=== PATIENT | male | born 1960 | race Caucasian/White ===

== ENCOUNTER 2022-10-29 08:41 | Outpatient (CLI) | payer BC | END 2022-10-29 08:42 | disposition home or self-care (01) | LOC: CSHWCC 08:41 | PROVIDERS: ATTEND Nurse Practitioner Family | DX: I87.311 Chronic venous hypertension (idiopathic) with ulcer of right lower extremity (principal); L97.312 Non-pressure chronic ulcer of right ankle with fat layer exposed; L97.322 Non-pressure chronic ulcer of left ankle with fat layer exposed; R60.0 Localized edema | CPT/HCPCS: 29581; 99213; G0463 ==

== ENCOUNTER 2022-11-13 09:37 | Outpatient (CLI) | payer BC | END 2022-11-13 09:38 | disposition home or self-care (01) | LOC: CSHWCC 09:37 | PROVIDERS: ATTEND Nurse Practitioner Family | DX: I87.313 Chronic venous hypertension (idiopathic) with ulcer of bilateral lower extremity (principal); L97.312 Non-pressure chronic ulcer of right ankle with fat layer exposed; L97.322 Non-pressure chronic ulcer of left ankle with fat layer exposed; R60.0 Localized edema | CPT/HCPCS: 29581 ==

== ENCOUNTER 2022-11-18 09:20 | Outpatient (CLI) | payer BC | END 2022-11-18 09:21 | disposition home or self-care (01) | LOC: CSHWCC 09:20 | PROVIDERS: ATTEND Nurse Practitioner Family | DX: I87.313 Chronic venous hypertension (idiopathic) with ulcer of bilateral lower extremity (principal); L97.312 Non-pressure chronic ulcer of right ankle with fat layer exposed; L97.322 Non-pressure chronic ulcer of left ankle with fat layer exposed; R60.0 Localized edema | CPT/HCPCS: 29581 ==

== ENCOUNTER 2022-11-23 14:29 | Outpatient (CLI) | payer BC | END 2022-11-23 14:30 | disposition home or self-care (01) | LOC: CSHWCC 14:29 | PROVIDERS: ATTEND Nurse Practitioner Family | DX: R60.0 Localized edema (principal) ==

== ENCOUNTER 2022-11-30 15:05 | Outpatient (CLI) | payer BC | END 2022-11-30 15:06 | disposition home or self-care (01) | LOC: CSHWCC 15:05 | PROVIDERS: ATTEND Nurse Practitioner Family | DX: I87.311 Chronic venous hypertension (idiopathic) with ulcer of right lower extremity (principal); L97.312 Non-pressure chronic ulcer of right ankle with fat layer exposed; R60.0 Localized edema | CPT/HCPCS: 29581 ==

== ENCOUNTER 2022-12-07 09:31 | Outpatient (CLI) | payer BC | END 2022-12-07 09:32 | disposition home or self-care (01) | LOC: CSHWCC 09:31 | PROVIDERS: ATTEND Nurse Practitioner Family | DX: R60.0 Localized edema (principal); I87.311 Chronic venous hypertension (idiopathic) with ulcer of right lower extremity; L97.312 Non-pressure chronic ulcer of right ankle with fat layer exposed ==

== ENCOUNTER 2022-12-14 10:33 | Outpatient (CLI) | payer BC | END 2022-12-14 10:34 | disposition home or self-care (01) | LOC: CSHWCC 10:33 | PROVIDERS: ATTEND Nurse Practitioner Family | DX: R60.0 Localized edema (principal) ==

== ENCOUNTER 2023-12-24 10:56 | Outpatient (CLI) | payer BC | END 2023-12-24 10:57 | disposition home or self-care (01) | LOC: CSHWCC 10:56 | PROVIDERS: ATTEND Nurse Practitioner Family | DX: I87.313 Chronic venous hypertension (idiopathic) with ulcer of bilateral lower extremity (principal); I87.2 Venous insufficiency (chronic) (peripheral); E11.622 Type 2 diabetes mellitus with other skin ulcer; L97.312 Non-pressure chronic ulcer of right ankle with fat layer exposed; L97.522 Non-pressure chronic ulcer of other part of left foot with fat layer exposed; I89.0 Lymphedema, not elsewhere classified | CPT/HCPCS: 29581 ==

== ENCOUNTER 2024-01-04 13:22 | Outpatient (CLI) | payer BC | END 2024-01-04 13:23 | disposition home or self-care (01) | LOC: CSHWCC 13:22 | PROVIDERS: ATTEND Nurse Practitioner Family | DX: I87.313 Chronic venous hypertension (idiopathic) with ulcer of bilateral lower extremity (principal); E11.622 Type 2 diabetes mellitus with other skin ulcer; E11.621 Type 2 diabetes mellitus with foot ulcer; L97.312 Non-pressure chronic ulcer of right ankle with fat layer exposed; L97.522 Non-pressure chronic ulcer of other part of left foot with fat layer exposed; I87.2 Venous insufficiency (chronic) (peripheral); I89.0 Lymphedema, not elsewhere classified | CPT/HCPCS: 11042 ==

== ENCOUNTER 2024-01-07 11:20 | Outpatient (CLI) | payer BC | END 2024-01-07 11:21 | disposition home or self-care (01) | LOC: CSHWCC 11:20 | PROVIDERS: ATTEND Nurse Practitioner Family | DX: I87.313 Chronic venous hypertension (idiopathic) with ulcer of bilateral lower extremity (principal); E11.622 Type 2 diabetes mellitus with other skin ulcer; L97.312 Non-pressure chronic ulcer of right ankle with fat layer exposed; E11.621 Type 2 diabetes mellitus with foot ulcer; L97.522 Non-pressure chronic ulcer of other part of left foot with fat layer exposed; I87.2 Venous insufficiency (chronic) (peripheral); I89.0 Lymphedema, not elsewhere classified | CPT/HCPCS: 29581 ==

== ENCOUNTER 2024-01-18 12:45 | Outpatient (CLI) | payer BC | END 2024-01-18 12:46 | disposition home or self-care (01) | LOC: CSHWCC 12:45 | PROVIDERS: ATTEND Nurse Practitioner Family | DX: I87.313 Chronic venous hypertension (idiopathic) with ulcer of bilateral lower extremity (principal); E11.622 Type 2 diabetes mellitus with other skin ulcer; L97.312 Non-pressure chronic ulcer of right ankle with fat layer exposed; L97.522 Non-pressure chronic ulcer of other part of left foot with fat layer exposed; I87.2 Venous insufficiency (chronic) (peripheral); I89.0 Lymphedema, not elsewhere classified | CPT/HCPCS: 11042 ==

== ENCOUNTER 2024-01-21 09:19 | Outpatient (CLI) | payer BC | END 2024-01-21 09:20 | disposition home or self-care (01) | LOC: CSHWCC 09:19 | PROVIDERS: ATTEND Nurse Practitioner Family | DX: I87.313 Chronic venous hypertension (idiopathic) with ulcer of bilateral lower extremity (principal); E11.622 Type 2 diabetes mellitus with other skin ulcer; L97.312 Non-pressure chronic ulcer of right ankle with fat layer exposed; L97.522 Non-pressure chronic ulcer of other part of left foot with fat layer exposed; I87.2 Venous insufficiency (chronic) (peripheral); I89.0 Lymphedema, not elsewhere classified | CPT/HCPCS: 29581 ==

== ENCOUNTER 2024-01-25 09:22 | Outpatient (CLI) | payer BC | END 2024-01-25 09:23 | disposition home or self-care (01) | LOC: CSHWCC 09:22 | PROVIDERS: ATTEND Nurse Practitioner Family | DX: I87.313 Chronic venous hypertension (idiopathic) with ulcer of bilateral lower extremity (principal); E11.622 Type 2 diabetes mellitus with other skin ulcer; L97.312 Non-pressure chronic ulcer of right ankle with fat layer exposed; L97.929 Non-pressure chronic ulcer of unspecified part of left lower leg with unspecified severity; E11.621 Type 2 diabetes mellitus with foot ulcer; L97.522 Non-pressure chronic ulcer of other part of left foot with fat layer exposed; I87.2 Venous insufficiency (chronic) (peripheral); I89.0 Lymphedema, not elsewhere classified; R22.43 Localized swelling, mass and lump, lower limb, bilateral | CPT/HCPCS: 11042; 29581 ==

== ENCOUNTER 2024-01-28 13:31 | Outpatient (CLI) | payer BC | END 2024-01-28 13:32 | disposition home or self-care (01) | LOC: CSHWCC 13:31 | PROVIDERS: ATTEND Nurse Practitioner Family | DX: I87.313 Chronic venous hypertension (idiopathic) with ulcer of bilateral lower extremity (principal); E11.622 Type 2 diabetes mellitus with other skin ulcer; L97.312 Non-pressure chronic ulcer of right ankle with fat layer exposed; E11.621 Type 2 diabetes mellitus with foot ulcer; L97.522 Non-pressure chronic ulcer of other part of left foot with fat layer exposed; I87.2 Venous insufficiency (chronic) (peripheral); I89.0 Lymphedema, not elsewhere classified; R22.43 Localized swelling, mass and lump, lower limb, bilateral | CPT/HCPCS: 29581 ==

== ENCOUNTER 2024-02-01 11:58 | Outpatient (CLI) | payer BC | END 2024-02-01 11:59 | disposition home or self-care (01) | LOC: CSHWCC 11:58 | PROVIDERS: ATTEND Nurse Practitioner Family | DX: I87.313 Chronic venous hypertension (idiopathic) with ulcer of bilateral lower extremity (principal); E11.622 Type 2 diabetes mellitus with other skin ulcer; L97.312 Non-pressure chronic ulcer of right ankle with fat layer exposed; L97.522 Non-pressure chronic ulcer of other part of left foot with fat layer exposed; I87.2 Venous insufficiency (chronic) (peripheral); I89.0 Lymphedema, not elsewhere classified; R22.43 Localized swelling, mass and lump, lower limb, bilateral | CPT/HCPCS: 29581 ==

== ENCOUNTER 2024-02-04 11:15 | Outpatient (CLI) | payer BC | END 2024-02-04 11:16 | disposition home or self-care (01) | LOC: CSHWCC 11:15 | PROVIDERS: ATTEND Preventive Medicine Undersea and Hyperbaric Medicine | DX: I87.313 Chronic venous hypertension (idiopathic) with ulcer of bilateral lower extremity (principal); E11.622 Type 2 diabetes mellitus with other skin ulcer; L97.312 Non-pressure chronic ulcer of right ankle with fat layer exposed; E11.621 Type 2 diabetes mellitus with foot ulcer; L97.522 Non-pressure chronic ulcer of other part of left foot with fat layer exposed; I87.2 Venous insufficiency (chronic) (peripheral); I89.0 Lymphedema, not elsewhere classified; R22.43 Localized swelling, mass and lump, lower limb, bilateral | CPT/HCPCS: 29581 ==

== ENCOUNTER 2024-02-08 09:33 | Outpatient (CLI) | payer BC | END 2024-02-08 09:34 | disposition home or self-care (01) | LOC: CSHWCC 09:33 | PROVIDERS: ATTEND Preventive Medicine Undersea and Hyperbaric Medicine | DX: I87.313 Chronic venous hypertension (idiopathic) with ulcer of bilateral lower extremity (principal); E11.622 Type 2 diabetes mellitus with other skin ulcer; L97.312 Non-pressure chronic ulcer of right ankle with fat layer exposed; E11.621 Type 2 diabetes mellitus with foot ulcer; L97.522 Non-pressure chronic ulcer of other part of left foot with fat layer exposed; I87.2 Venous insufficiency (chronic) (peripheral); I89.0 Lymphedema, not elsewhere classified; R22.43 Localized swelling, mass and lump, lower limb, bilateral | CPT/HCPCS: 29581 ==

== ENCOUNTER 2024-02-11 11:37 | Outpatient (CLI) | payer BC | END 2024-02-11 11:38 | disposition home or self-care (01) | LOC: CSHWCC 11:37 | PROVIDERS: ATTEND Nurse Practitioner Family | DX: I87.313 Chronic venous hypertension (idiopathic) with ulcer of bilateral lower extremity (principal); E11.622 Type 2 diabetes mellitus with other skin ulcer; L97.312 Non-pressure chronic ulcer of right ankle with fat layer exposed; E11.621 Type 2 diabetes mellitus with foot ulcer; L97.522 Non-pressure chronic ulcer of other part of left foot with fat layer exposed; I87.2 Venous insufficiency (chronic) (peripheral); I89.0 Lymphedema, not elsewhere classified; R22.43 Localized swelling, mass and lump, lower limb, bilateral | CPT/HCPCS: 11042 ==

== ENCOUNTER 2024-02-15 11:48 | Outpatient (CLI) | payer BC | END 2024-02-15 11:49 | disposition home or self-care (01) | LOC: CSHWCC 11:48 | PROVIDERS: ATTEND Nurse Practitioner Family | DX: I87.313 Chronic venous hypertension (idiopathic) with ulcer of bilateral lower extremity (principal); E11.622 Type 2 diabetes mellitus with other skin ulcer; L97.312 Non-pressure chronic ulcer of right ankle with fat layer exposed; L97.522 Non-pressure chronic ulcer of other part of left foot with fat layer exposed; I87.2 Venous insufficiency (chronic) (peripheral); I89.0 Lymphedema, not elsewhere classified; R22.43 Localized swelling, mass and lump, lower limb, bilateral | CPT/HCPCS: 29581 ==

== ENCOUNTER 2024-02-18 10:33 | Outpatient (CLI) | payer BC | END 2024-02-18 10:34 | disposition home or self-care (01) | LOC: CSHWCC 10:33 | PROVIDERS: ATTEND Nurse Practitioner Family | DX: I87.313 Chronic venous hypertension (idiopathic) with ulcer of bilateral lower extremity (principal); E11.622 Type 2 diabetes mellitus with other skin ulcer; L97.312 Non-pressure chronic ulcer of right ankle with fat layer exposed; E11.621 Type 2 diabetes mellitus with foot ulcer; L97.522 Non-pressure chronic ulcer of other part of left foot with fat layer exposed; I87.2 Venous insufficiency (chronic) (peripheral); I89.0 Lymphedema, not elsewhere classified; R22.43 Localized swelling, mass and lump, lower limb, bilateral | CPT/HCPCS: 11042 ==

== ENCOUNTER 2024-02-22 13:18 | Outpatient (CLI) | payer BC | END 2024-02-22 13:19 | disposition home or self-care (01) | LOC: CSHWCC 13:18 | PROVIDERS: ATTEND Nurse Practitioner Family | DX: I87.313 Chronic venous hypertension (idiopathic) with ulcer of bilateral lower extremity (principal); E11.622 Type 2 diabetes mellitus with other skin ulcer; L97.312 Non-pressure chronic ulcer of right ankle with fat layer exposed; E11.621 Type 2 diabetes mellitus with foot ulcer; L97.522 Non-pressure chronic ulcer of other part of left foot with fat layer exposed; I87.2 Venous insufficiency (chronic) (peripheral); I89.0 Lymphedema, not elsewhere classified; R22.43 Localized swelling, mass and lump, lower limb, bilateral | CPT/HCPCS: 29581 ==

== ENCOUNTER 2024-02-25 11:44 | Outpatient (CLI) | payer BC | END 2024-02-25 11:45 | disposition home or self-care (01) | LOC: CSHWCC 11:44 | PROVIDERS: ATTEND Nurse Practitioner Family | DX: I87.313 Chronic venous hypertension (idiopathic) with ulcer of bilateral lower extremity (principal); E11.622 Type 2 diabetes mellitus with other skin ulcer; L97.312 Non-pressure chronic ulcer of right ankle with fat layer exposed; E11.621 Type 2 diabetes mellitus with foot ulcer; L97.522 Non-pressure chronic ulcer of other part of left foot with fat layer exposed; L97.512 Non-pressure chronic ulcer of other part of right foot with fat layer exposed; I87.2 Venous insufficiency (chronic) (peripheral); I89.0 Lymphedema, not elsewhere classified | CPT/HCPCS: 11042 ==

== ENCOUNTER 2024-02-29 10:38 | Outpatient (CLI) | payer BC | END 2024-02-29 10:39 | disposition home or self-care (01) | LOC: CSHWCC 10:38 | PROVIDERS: ATTEND Nurse Practitioner Family | DX: I87.313 Chronic venous hypertension (idiopathic) with ulcer of bilateral lower extremity (principal); E11.622 Type 2 diabetes mellitus with other skin ulcer; L97.312 Non-pressure chronic ulcer of right ankle with fat layer exposed; E11.621 Type 2 diabetes mellitus with foot ulcer; L97.522 Non-pressure chronic ulcer of other part of left foot with fat layer exposed; L97.512 Non-pressure chronic ulcer of other part of right foot with fat layer exposed; I87.2 Venous insufficiency (chronic) (peripheral); I89.0 Lymphedema, not elsewhere classified | CPT/HCPCS: 29581 ==

== ENCOUNTER 2024-03-07 11:20 | Outpatient (CLI) | payer BC | END 2024-03-07 11:21 | disposition home or self-care (01) | LOC: CSHWCC 11:20 | PROVIDERS: ATTEND Nurse Practitioner Family | DX: I87.313 Chronic venous hypertension (idiopathic) with ulcer of bilateral lower extremity (principal); E11.622 Type 2 diabetes mellitus with other skin ulcer; L97.312 Non-pressure chronic ulcer of right ankle with fat layer exposed; E11.621 Type 2 diabetes mellitus with foot ulcer; L97.522 Non-pressure chronic ulcer of other part of left foot with fat layer exposed; I87.2 Venous insufficiency (chronic) (peripheral); I89.0 Lymphedema, not elsewhere classified; R22.43 Localized swelling, mass and lump, lower limb, bilateral | CPT/HCPCS: 29581 ==

== ENCOUNTER 2024-03-10 11:17 | Outpatient (CLI) | payer BC | END 2024-03-10 11:18 | disposition home or self-care (01) | LOC: CSHWCC 11:17 | PROVIDERS: ATTEND Nurse Practitioner Family | DX: I87.313 Chronic venous hypertension (idiopathic) with ulcer of bilateral lower extremity (principal); E11.622 Type 2 diabetes mellitus with other skin ulcer; L97.312 Non-pressure chronic ulcer of right ankle with fat layer exposed; E11.621 Type 2 diabetes mellitus with foot ulcer; L97.522 Non-pressure chronic ulcer of other part of left foot with fat layer exposed; L97.512 Non-pressure chronic ulcer of other part of right foot with fat layer exposed; I87.2 Venous insufficiency (chronic) (peripheral); I89.0 Lymphedema, not elsewhere classified | CPT/HCPCS: 11042 ==

== ENCOUNTER 2024-04-07 09:06 | Outpatient (CLI) | payer BC | END 2024-04-07 09:07 | disposition home or self-care (01) | LOC: CSHWCC 09:06 | PROVIDERS: ATTEND Nurse Practitioner Family | DX: E11.622 Type 2 diabetes mellitus with other skin ulcer (principal); I87.313 Chronic venous hypertension (idiopathic) with ulcer of bilateral lower extremity; L97.312 Non-pressure chronic ulcer of right ankle with fat layer exposed; L97.522 Non-pressure chronic ulcer of other part of left foot with fat layer exposed; L97.512 Non-pressure chronic ulcer of other part of right foot with fat layer exposed; I87.2 Venous insufficiency (chronic) (peripheral); I89.0 Lymphedema, not elsewhere classified | CPT/HCPCS: 11042; 97597 ==

== ENCOUNTER 2024-05-05 11:47 | Outpatient (CLI) | payer BC | END 2024-05-05 11:48 | disposition home or self-care (01) | LOC: CSHWCC 11:47 | PROVIDERS: ATTEND Nurse Practitioner Family | DX: I87.313 Chronic venous hypertension (idiopathic) with ulcer of bilateral lower extremity (principal); E11.622 Type 2 diabetes mellitus with other skin ulcer; L97.312 Non-pressure chronic ulcer of right ankle with fat layer exposed; E11.621 Type 2 diabetes mellitus with foot ulcer; L97.512 Non-pressure chronic ulcer of other part of right foot with fat layer exposed; L97.522 Non-pressure chronic ulcer of other part of left foot with fat layer exposed; I87.2 Venous insufficiency (chronic) (peripheral); I89.0 Lymphedema, not elsewhere classified | CPT/HCPCS: 11042 ==

== ENCOUNTER 2024-05-12 11:25 | Outpatient (CLI) | payer BC | END 2024-05-12 11:26 | disposition home or self-care (01) | LOC: CSHWCC 11:25 | PROVIDERS: ATTEND Nurse Practitioner Family | DX: I87.313 Chronic venous hypertension (idiopathic) with ulcer of bilateral lower extremity (principal); I87.2 Venous insufficiency (chronic) (peripheral); E11.622 Type 2 diabetes mellitus with other skin ulcer; L97.312 Non-pressure chronic ulcer of right ankle with fat layer exposed; L97.522 Non-pressure chronic ulcer of other part of left foot with fat layer exposed; L97.512 Non-pressure chronic ulcer of other part of right foot with fat layer exposed; I89.0 Lymphedema, not elsewhere classified | CPT/HCPCS: 11042 ==

== ENCOUNTER 2024-05-19 10:12 | Outpatient (CLI) | payer BC | END 2024-05-19 10:13 | disposition home or self-care (01) | LOC: CSHWCC 10:12 | PROVIDERS: ATTEND Nurse Practitioner Family | DX: I87.313 Chronic venous hypertension (idiopathic) with ulcer of bilateral lower extremity (principal); E11.622 Type 2 diabetes mellitus with other skin ulcer; E11.621 Type 2 diabetes mellitus with foot ulcer; L97.312 Non-pressure chronic ulcer of right ankle with fat layer exposed; L97.522 Non-pressure chronic ulcer of other part of left foot with fat layer exposed; L97.512 Non-pressure chronic ulcer of other part of right foot with fat layer exposed; I87.2 Venous insufficiency (chronic) (peripheral); I89.0 Lymphedema, not elsewhere classified | CPT/HCPCS: 11042 ==

== ENCOUNTER 2024-05-26 10:03 | Outpatient (CLI) | payer BC | END 2024-05-26 10:04 | disposition home or self-care (01) | LOC: CSHWCC 10:03 | PROVIDERS: ATTEND Nurse Practitioner Family | DX: I87.313 Chronic venous hypertension (idiopathic) with ulcer of bilateral lower extremity (principal); E11.622 Type 2 diabetes mellitus with other skin ulcer; L97.312 Non-pressure chronic ulcer of right ankle with fat layer exposed; E11.621 Type 2 diabetes mellitus with foot ulcer; L97.512 Non-pressure chronic ulcer of other part of right foot with fat layer exposed; L97.522 Non-pressure chronic ulcer of other part of left foot with fat layer exposed; I87.2 Venous insufficiency (chronic) (peripheral); I89.0 Lymphedema, not elsewhere classified | CPT/HCPCS: 11042; 97597 ==

== ENCOUNTER 2024-06-02 11:47 | Outpatient (CLI) | payer BC | END 2024-06-02 11:48 | disposition home or self-care (01) | LOC: CSHWCC 11:47 | PROVIDERS: ATTEND Nurse Practitioner Family | DX: I87.313 Chronic venous hypertension (idiopathic) with ulcer of bilateral lower extremity (principal); E11.622 Type 2 diabetes mellitus with other skin ulcer; L97.312 Non-pressure chronic ulcer of right ankle with fat layer exposed; E11.621 Type 2 diabetes mellitus with foot ulcer; L97.522 Non-pressure chronic ulcer of other part of left foot with fat layer exposed; L97.512 Non-pressure chronic ulcer of other part of right foot with fat layer exposed; I87.2 Venous insufficiency (chronic) (peripheral); I89.0 Lymphedema, not elsewhere classified | CPT/HCPCS: 11042 ==

== ENCOUNTER 2024-06-09 09:36 | Outpatient (CLI) | payer BC | END 2024-06-09 09:37 | LOC: CSHWCC 09:36 | PROVIDERS: ATTEND Nurse Practitioner Family | DX: I87.313 Chronic venous hypertension (idiopathic) with ulcer of bilateral lower extremity (principal); E11.622 Type 2 diabetes mellitus with other skin ulcer; L97.312 Non-pressure chronic ulcer of right ankle with fat layer exposed; E11.621 Type 2 diabetes mellitus with foot ulcer; L97.522 Non-pressure chronic ulcer of other part of left foot with fat layer exposed; L97.512 Non-pressure chronic ulcer of other part of right foot with fat layer exposed; I87.2 Venous insufficiency (chronic) (peripheral); I89.0 Lymphedema, not elsewhere classified | CPT/HCPCS: 99211; G0463 ==

== ENCOUNTER 2024-06-14 09:40 | Outpatient (CLI) | payer BC | END 2024-06-14 09:41 | disposition home or self-care (01) | LOC: CSHWCC 09:40 | PROVIDERS: ATTEND Nurse Practitioner Family | DX: E11.622 Type 2 diabetes mellitus with other skin ulcer (principal); I87.313 Chronic venous hypertension (idiopathic) with ulcer of bilateral lower extremity; L97.312 Non-pressure chronic ulcer of right ankle with fat layer exposed; L97.522 Non-pressure chronic ulcer of other part of left foot with fat layer exposed; I87.2 Venous insufficiency (chronic) (peripheral); I89.0 Lymphedema, not elsewhere classified | CPT/HCPCS: 11042 ==

== ENCOUNTER 2024-06-21 09:52 | Outpatient (CLI) | payer BC | END 2024-06-21 09:53 | disposition home or self-care (01) | LOC: CSHWCC 09:52 | PROVIDERS: ATTEND Nurse Practitioner Family | DX: I87.313 Chronic venous hypertension (idiopathic) with ulcer of bilateral lower extremity (principal); E11.622 Type 2 diabetes mellitus with other skin ulcer; L97.312 Non-pressure chronic ulcer of right ankle with fat layer exposed; E11.621 Type 2 diabetes mellitus with foot ulcer; L97.522 Non-pressure chronic ulcer of other part of left foot with fat layer exposed; L97.512 Non-pressure chronic ulcer of other part of right foot with fat layer exposed; I87.2 Venous insufficiency (chronic) (peripheral); I89.0 Lymphedema, not elsewhere classified | CPT/HCPCS: 11042 ==

== ENCOUNTER 2024-06-28 08:57 | Outpatient (CLI) | payer BC | END 2024-06-28 08:58 | disposition home or self-care (01) | LOC: CSHWCC 08:57 | PROVIDERS: ATTEND Nurse Practitioner Family | DX: I87.313 Chronic venous hypertension (idiopathic) with ulcer of bilateral lower extremity (principal); E11.622 Type 2 diabetes mellitus with other skin ulcer; L97.312 Non-pressure chronic ulcer of right ankle with fat layer exposed; E11.621 Type 2 diabetes mellitus with foot ulcer; L97.512 Non-pressure chronic ulcer of other part of right foot with fat layer exposed; L97.522 Non-pressure chronic ulcer of other part of left foot with fat layer exposed; I87.2 Venous insufficiency (chronic) (peripheral); I89.0 Lymphedema, not elsewhere classified | CPT/HCPCS: 11042 ==

== ENCOUNTER 2024-07-05 10:23 | Outpatient (CLI) | payer BC | END 2024-07-05 10:24 | disposition home or self-care (01) | LOC: CSHWCC 10:23 | PROVIDERS: ATTEND Nurse Practitioner Family | DX: E11.622 Type 2 diabetes mellitus with other skin ulcer (principal); I87.313 Chronic venous hypertension (idiopathic) with ulcer of bilateral lower extremity; L97.312 Non-pressure chronic ulcer of right ankle with fat layer exposed; L97.522 Non-pressure chronic ulcer of other part of left foot with fat layer exposed; L97.512 Non-pressure chronic ulcer of other part of right foot with fat layer exposed; I87.2 Venous insufficiency (chronic) (peripheral); I89.0 Lymphedema, not elsewhere classified | CPT/HCPCS: 11042 ==

== ENCOUNTER 2024-07-19 11:47 | Outpatient (CLI) | payer BC | END 2024-07-19 11:48 | disposition home or self-care (01) | LOC: CSHWCC 11:47 | PROVIDERS: ATTEND Nurse Practitioner Family | DX: I87.313 Chronic venous hypertension (idiopathic) with ulcer of bilateral lower extremity (principal); E11.621 Type 2 diabetes mellitus with foot ulcer; E11.622 Type 2 diabetes mellitus with other skin ulcer; L97.512 Non-pressure chronic ulcer of other part of right foot with fat layer exposed; L97.522 Non-pressure chronic ulcer of other part of left foot with fat layer exposed; L97.312 Non-pressure chronic ulcer of right ankle with fat layer exposed; I87.2 Venous insufficiency (chronic) (peripheral); I89.0 Lymphedema, not elsewhere classified | CPT/HCPCS: 11042 ==

== ENCOUNTER 2024-07-21 12:05 | Outpatient (CLI) | payer BC | END 2024-07-21 12:06 | disposition home or self-care (01) | LOC: CSHULT 12:05 | PROVIDERS: ATTEND Urology | DX: N40.1 Benign prostatic hyperplasia with lower urinary tract symptoms (principal) | CPT/HCPCS: 76770 ==

== ENCOUNTER 2024-07-26 12:05 | Outpatient (CLI) | payer BC | END 2024-07-26 12:06 | disposition home or self-care (01) | LOC: CSHWCC 12:05 | PROVIDERS: ATTEND Nurse Practitioner Family | DX: E11.621 Type 2 diabetes mellitus with foot ulcer (principal); I87.313 Chronic venous hypertension (idiopathic) with ulcer of bilateral lower extremity; L97.522 Non-pressure chronic ulcer of other part of left foot with fat layer exposed; L97.512 Non-pressure chronic ulcer of other part of right foot with fat layer exposed; I87.2 Venous insufficiency (chronic) (peripheral); I89.0 Lymphedema, not elsewhere classified | CPT/HCPCS: 11042 ==

== ENCOUNTER 2024-08-02 11:30 | Outpatient (CLI) | payer BC | END 2024-08-02 11:31 | disposition home or self-care (01) | LOC: CSHWCC 11:30 | PROVIDERS: ATTEND Nurse Practitioner Family | DX: I87.313 Chronic venous hypertension (idiopathic) with ulcer of bilateral lower extremity (principal); E11.621 Type 2 diabetes mellitus with foot ulcer; L97.522 Non-pressure chronic ulcer of other part of left foot with fat layer exposed; L97.512 Non-pressure chronic ulcer of other part of right foot with fat layer exposed; I87.2 Venous insufficiency (chronic) (peripheral); I89.0 Lymphedema, not elsewhere classified | CPT/HCPCS: 99214; G0463 ==

== ENCOUNTER 2024-08-17 09:53 | Outpatient (CLI) | payer BC | END 2024-08-17 09:54 | disposition home or self-care (01) | LOC: CSHWCC 09:53 | PROVIDERS: ATTEND Nurse Practitioner Family | DX: I87.313 Chronic venous hypertension (idiopathic) with ulcer of bilateral lower extremity (principal); E11.621 Type 2 diabetes mellitus with foot ulcer; L97.512 Non-pressure chronic ulcer of other part of right foot with fat layer exposed; L97.522 Non-pressure chronic ulcer of other part of left foot with fat layer exposed; I87.2 Venous insufficiency (chronic) (peripheral); I89.0 Lymphedema, not elsewhere classified | CPT/HCPCS: 11042 ==

== ENCOUNTER 2024-08-23 10:10 | Outpatient (CLI) | payer BC | END 2024-08-23 10:11 | disposition home or self-care (01) | LOC: CSHWCC 10:10 | PROVIDERS: ATTEND Nurse Practitioner Family | DX: E11.621 Type 2 diabetes mellitus with foot ulcer (principal); I87.313 Chronic venous hypertension (idiopathic) with ulcer of bilateral lower extremity; L97.522 Non-pressure chronic ulcer of other part of left foot with fat layer exposed; L97.512 Non-pressure chronic ulcer of other part of right foot with fat layer exposed; I87.2 Venous insufficiency (chronic) (peripheral); I89.0 Lymphedema, not elsewhere classified ==

== ENCOUNTER 2024-10-04 10:01 | Outpatient (CLI) | payer BC | END 2024-10-04 10:02 | disposition home or self-care (01) | LOC: CSHWCC 10:01 | PROVIDERS: ATTEND Nurse Practitioner Family | DX: I87.313 Chronic venous hypertension (idiopathic) with ulcer of bilateral lower extremity (principal); E11.621 Type 2 diabetes mellitus with foot ulcer; L97.512 Non-pressure chronic ulcer of other part of right foot with fat layer exposed; L97.522 Non-pressure chronic ulcer of other part of left foot with fat layer exposed; I87.2 Venous insufficiency (chronic) (peripheral); I89.0 Lymphedema, not elsewhere classified | CPT/HCPCS: 99212; G0463 ==